=== PATIENT | female | born 1955 | race Two or more races ===

== ENCOUNTER 2016-07-14 03:15 | Emergency (ER) | payer SELFPAY ==
[~2016-07-14] VITALS: Ht 167.6 cm; Wt 63.5 kg
--- NOTE | 2016-07-14 03:25 | NUR ---
PT BIBA #102 PT GIVEN 2 SPRAYS OF NITRO AND 162MG OF ASPIRN.PT A/OX4 BREATHING EFFORTLESSLY ON ROOM AIR, PT STATES SHE STARTED HAVING CHEST PAIN X 1 HOUR AGO WHILE IN HER LONG TERM CELL. IV PLACED PRIOR TO ARRIVAL. PT IN GOWN, ON MONITOR, EKG DONE, LAB CALLED TO DRAW, [employer] AT BEDSIDE, MD MADE AWARE WILL CONTINUE TO MONITOR.
[2016-07-14 03:43] LABS: BASOPHILS % (AUTO) 0.6 % (0.0-2.0); EOSINOPHILS # (AUTO) 0.3 /CMM (0.0-0.7); HEMATOCRIT 37 % (33-45); HEMOGLOBIN 11.6 g/dL (11.5-14.8); LYMPHOCYTES # (AUTO) 2.3 /CMM (0.8-4.8); MEAN CORPUSCULAR HEMOGLOBIN 25 PG (26.0-33.0); MEAN CORPUSCULAR HGB CONC 32 g/dl (31.0-36.0); MEAN CORPUSCULAR VOLUME 79 fL (82-100); MONOCYTES # (AUTO) 0.6 /CMM (0.1-1.30); NEUTROPHILS # (AUTO) 5.2 /CMM (1.8-8.9); NEUTROPHILS % (AUTO) 62.4 % (43.0-81.0); PLATELET COUNT (AUTO) 403 /CMM (150-450); RDW COEFFICIENT OF VARIATION 19.6 (11.5-15.0); RED BLOOD CELL COUNT(AUTO) 4.67 MIL/uL (4.0-5.2); WHITE BLOOD COUNT (AUTO) 8.4 K/uL (4.3-11.0)
[2016-07-14 03:53] LABS: CARBON DIOXIDE 25 mmol/L (21-32); CHLORIDE 108 mmol/L (98-107); GFR 56 mL/min (>60); GLUCOSE 119 mg/dL (74-106); POTASSIUM 3.3 mmol/L (3.5-5.1); SODIUM SERUM 144 mmol/L (136-145); UREA NITROGEN, BLOOD 19 mg/dL (7-18)
[2016-07-14 04:01] LABS: TROPONIN I < 0.017 ng/mL (0.00-0.056)
[2016-07-14] MEDS ORDERED: POTASSIUM CHLORIDE 20 MEQ TAB.PRT.SR PO ONE ×2 (05:00)
--- NOTE | 2016-07-14 05:07 | NUR ---
PT IN BED RELAXING IN NO APPARENT DISTRESS MD MADE AWARE WILL CONTINUE TO MONITOR.
--- NOTE | 2016-07-14 07:25 | NUR ---
Patient on bed, awake.vss
[2016-07-14 07:40] VITALS: BP 130/80
--- NOTE | 2016-07-14 07:40 | NUR ---
Patient discharged to home in stable condition. Written and verbal after care instructions given. Patient verbalizes understanding of instruction.
== END 2016-07-14 07:43 ==
LOC: ER 03:17
DX: I20.8 Other forms of angina pectoris (principal); I10 Essential (primary) hypertension; I25.2 Old myocardial infarction; I70.0 Atherosclerosis of aorta
CPT/HCPCS: 36415; 71010-TC; 80048-TC; 84484-TC; 85025-TC; A4606; Z7610

== ENCOUNTER 2018-10-25 19:23 | Inpatient (IN) | payer MEDICAID ==
[~2018-10-25] VITALS: Ht 160 cm; Wt 76.7 kg
[~2018-10-25 19:23] MED LIST: ALBU18HF2 IH; CLON0.1T PO; FLUO-120 PO; GABA600T12 PO; LISI-603 PO; METF500T7 PO; PRED20TA PO; RANI300C PO; ZOLP10TA6 PO
--- NOTE | 2018-10-25 19:32 | NUR ---
PT BIBRA39 FROM [facility] C/O GENERALIZED ABD PAIN W/NAUSEA X 2 DAYS. PT AOX4. NAD NOTED. RESP EVEN AND UNLABORED. PT ON MONITOR IN BED 4. WILL CONTINUE TO MONITOR.
--- NOTE | 2018-10-25 19:49 | NUR ---
BLOOD DRAWN AND GIVEN TO LAB
--- NOTE | 2018-10-25 19:52 | NUR ---
TECH AT BEDSIDE FOR EKG
[2018-10-25 19:59] LABS: BASOPHILS # (AUTO) 0.2 /CMM (0.0-0.2); BASOPHILS % (AUTO) 0.7 % (0.0-2.0); HEMOGLOBIN 11.8 g/dL (11.5-14.8); MEAN CORPUSCULAR HGB CONC 33 g/dl (31.0-36.0)
[2018-10-25] MEDS ORDERED: ONDANSETRON HCL/PF 4 MG/2 ML VIAL ONE (19:59)
[2018-10-25] MEDS ORDERED: MORPHINE SULFATE INJ 4 MG/ML DISP.SYRIN ONE (19:59)
[2018-10-25] MEDS ORDERED: ONDANSETRON HCL/PF 4 MG/2 ML VIAL IVP ONE (20:00)
[2018-10-25] MEDS ORDERED: IV NS 0.9% 500 ML BAG IV ONE (20:00)
[2018-10-25] MEDS ORDERED: MORPHINE SULFATE INJ 2 MG/ML DISP.SYRIN IV ONE (20:00)
[2018-10-25 20:03] LABS: HEMATOCRIT 36 % (33-45); LYMPHOCYTES # (AUTO) 2.4 /CMM (0.8-4.8); LYMPHOCYTES % (AUTO) 9.5 % (20.0-44.0); MEAN CORPUSCULAR VOLUME 82 fL (82-100); MONOCYTES # (AUTO) 0.9 /CMM (0.1-1.30); MONOCYTES % (AUTO) 3.6 % (2.0-12.0); NEUTROPHILS # (AUTO) 21.3 /CMM (1.8-8.9); NEUTROPHILS % (AUTO) 86.2 % (43.0-81.0); PLATELET COUNT (AUTO) 498 /CMM (150-450); RED BLOOD CELL COUNT(AUTO) 4.44 MIL/uL (4.0-5.2); WHITE BLOOD COUNT (AUTO) 24.7 K/uL (4.3-11.0)
[2018-10-25 20:07] LABS: CALCIUM, SERUM 9.4 mg/dL (8.5-10.1); CARBON DIOXIDE 25 mmol/L (21-32); CHLORIDE 102 mmol/L (98-107); CREATININE 1.2 mg/dL (0.6-1.3); GLUCOSE 118 mg/dL (74-106); SODIUM SERUM 137 mmol/L (136-145); UREA NITROGEN, BLOOD 17 mg/dL (7-18)
--- NOTE | 2018-10-25 20:09 | NUR ---
URINE COLLECTED AND SENT TO LAB
[2018-10-25 20:13] LABS: ALANINE AMINOTRANSFERASE 13 U/L (12-78); ALBUMIN 3.1 g/dL (3.4-5.0); ALKALINE PHOSPHATASE 108 U/L (46-116); ASPARTATE AMINOTRANSFERASE 14 U/L (15-37); BILIRUBIN,DIRECT 0.1 mg/dL (0.0-0.2); BILIRUBIN,TOTAL 0.6 mg/dL (0.2-1.0); LIPASE 90 U/L (73-393); TOTAL PROTEIN, SERUM 7.3 g/dL (6.4-8.2)
--- NOTE | 2018-10-25 20:13 | NUR ---
RADIOLOGY AT BEDSIDE FOR XRAY
[2018-10-25 20:24] LABS: APPEARANCE,URINE Clear (CLEAR); BILIRUBIN,URINE Negative (NEGATIVE); BLOOD, URINE Negative Ery/uL (NEGATIVE); COLOR,URINE Yellow (YELLOW); KETONES,URINE Negative (NEGATIVE); LEUKOCYTE ESTERASE ,URINE Negative (NEGATIVE); NITRITE, URINE Negative (NEGATIVE); PROTEIN,URINE 100 mg/dl (NEGATIVE); UGLUCOSE Negative (NEGATIVE); UROBILINOGEN,URINE 0.2 EU/dL (0.2)
[2018-10-25 20:30] LABS: PH,URINE >9.0 (5.0-8.0)
[2018-10-25 20:34] LABS: BACTERIA,URINE Few /HPF (None Seen); RBC,URINE 0-2 /HPF (0-2); SQUAMOUS EPITHELIAL CELL,UR Few /HPF (None Seen)
[2018-10-25] MEDS ORDERED: CT SWABBABLE VALVE TRANS SET 1 EA INFUS.SET MC ONE (20:35)
[2018-10-25] MEDS ORDERED: IOHEXOL-300 100 ML VIAL IV ONE (20:35)
[2018-10-25] MEDS ORDERED: IV NS 0.9% 250 ML IV ONE (20:36)
--- NOTE | 2018-10-25 20:43 | NUR ---
PT TAKEN TO RADIOLOGY VIA [facility] FOR CT
--- NOTE | 2018-10-25 21:00 | NUR ---
PT RETRUNED FROM CT. PT TOLERATED WELL.
--- NOTE | 2018-10-25 21:51 | NUR ---
LACTIC ACID 2.4. MD AWARE.
[2018-10-25] MEDS ORDERED: HYDROMORPHONE 1 MG/1 ML DISP.SYRIN IV ONE (22:00)
[2018-10-25] MEDS ORDERED: MEROPENEM 1 G in IV NS 0.9% 100 ML IV ONE (22:00)
[2018-10-25] MEDS ORDERED: AZITHROMYCIN 500 MG in IV D5W 250 ML IV ONE (22:00)
[2018-10-25] MEDS ORDERED: HYDROMORPHONE 1 MG/1 ML DISP.SYRIN ONE (22:03)
[2018-10-25] MEDS ORDERED: MEROPENEM 1 G VIAL IV ONE (22:03)
[2018-10-25] MEDS ORDERED: AZITHROMYCIN 500 MG VIAL ONE ×2 (22:28→23:43)
--- NOTE | 2018-10-25 22:29 | NUR ---
REPORT GIVEN TO TEJAL HERNANDEZ FOR CHERI
--- NOTE | 2018-10-25 22:29 | NUR ---
ENDORSED AZITHROMYCIN 500 MG TO TEJAL HERNANDEZ FOR ADMINISTRATION
[2018-10-25] MEDS ORDERED: ALBUTEROL FS 2.5 MG/0.5 ML VIAL.NEB NEB PRN (22:30)
[2018-10-25] MEDS ORDERED: MAGNESIUM HYDROXIDE 30 ML UDC PO PRN (22:30)
[2018-10-25] MEDS ORDERED: IV NS 0.9% 1,000 ML IV PRN (22:30)
[2018-10-25] MEDS ORDERED: INSULIN REGULAR, HUMAN 100 UNIT/ML 3 ML VIAL SQ PRN (22:30)
[2018-10-25] MEDS ORDERED: MAG HYDROX/AL HYDROX/SIMETH 30 ML UDC PO PRN (22:30)
[2018-10-25] MEDS ORDERED: Z GUARD REMEDY 2 OZ OINT TP PRN (22:30)
[2018-10-25] MEDS ORDERED: DEXTROSE 50%-WATER 50 ML DISP.SYRIN IV PRN (22:30)
[2018-10-25] MEDS ORDERED: IPRATROPIUM NEB FS 0.5 MG/2.5 ML AMPUL.NEB NEB PRN (22:30)
[2018-10-25] MEDS ORDERED: ONDANSETRON HCL/PF 4 MG/2 ML VIAL IVP PRN (22:30)
[2018-10-25] MEDS ORDERED: IV NS 0.9% 2,000 ML IV PRN (22:30)
--- NOTE | 2018-10-25 23:00 | NUR ---
TELE/RN NOTES RECEIVED NEW ADMITTED PATIENT IS A 63 YO FEMALE WHO WAS BROUGHT FROM ER ON A GURNEY WITH DX OF RIGHT LOBE PNEUMONIA, PATIENT IS ALERT, ORIENTED X3, ABLE TO PARTICIPATE WITH CARE, RESPIRATIONS EVEN AND UNLABORED, SKIN WARM TO TOUCH, RESPIRATIONS EVEN AND UNLABORED, ON TELE SR 96, , NO PAIN REPORTED AND OBSERVED AT THIS TIME. ABLE TO AMBULATE WITH SUPERVISION, ID BAND PLACED, INSTRUCTR ON USE OF CALL LIGHTS, BED LOCKED, CALL LIGHTS WITHIN REACH, MD TUBBS ADMITING DR. HARDIN CHECK, IV ON LEFT AC, WITH ANTIBIOTIC TO BE INFUSED PER MD ORDER. WILL MONITOR. BED LOCKED CALL LIGHTS WITHIN REACH. WILL MONITOR FOR ANY CHANGES, MD WITH ORDERS. ORDERS TO CARRYOUT.
[2018-10-25 23:30] VITALS: BP 120/77
[2018-10-26] VITALS: BP 117/47
[2018-10-26] MEDS: GUAIFENESIN LA 600 MG TABLET.SA PO SCH ×3 (00:13→20:57)
[2018-10-26 00:24] VITALS: BP 120/77
--- NOTE | 2018-10-26 03:20 | NUR ---
TELE/RN NOTES PATIENT RESTING COMFORTABLY IN BED, MD WAS INFORMED ABOUT ECHOCARDIOGRAM RESULT WITH EF OF 60%, BUT WITH RIGHT DIASTOLIC COLLAPSE RESULT AND VENTRICULAR COLLAPSE, HX OF ,I, ON TELE SR 90'S, NO PAIN AND RESPIRATIONS EVEN AND UNLABORED. MADE AWARE MD TUBBS WITH NO NEW ORDER.
[2018-10-26] MEDS ORDERED: MEROPENEM 1 G VIAL IV ONE (03:29)
[2018-10-26 04:00] VITALS: BP_SYST 134; BP_SYST 174; BP_DIAS 87
[2018-10-26] MEDS: ACETAMINOPHEN 325 MG TABLET PO PRN (04:12)
--- NOTE | 2018-10-26 04:36 | NUR ---
TELE/RN NOTES PATIENT REPORTED HEADACHE, WITH NAUSEA AND ABDOMINAL PAIN , TYLENOL 650MG PO GIVEN AND MAALOC FOR ABDOMINAL DISCOMFORT, WILL GOVE AMRITAAN AND MONITOR.
[2018-10-26] MEDS: HYDROCODONE/APAP 5/325MG 1 EACH TABLET PO PRN ×2 (04:44→20:05)
--- NOTE | 2018-10-26 04:44 | NUR ---
TELE/RN NOTES PATIENT PROVIDED OXYGEN AT 2LITER , ON ROOM AIR OXYGEN AT 93%, WITH PAIN MODERATE IN ABDOMEN, PATIENT ON NEEDED MEDICATION NORCO 5-325 MG PO. WILL MONITOR.
[2018-10-26] MEDS ORDERED: MEROPENEM 1 G in IV NS 0.9% 100 ML IV SCH (05:00)
--- NOTE | 2018-10-26 06:01 | NUR ---
TELE/RN NOTES PATIENT REPORTED PAIN OF MINIMAL PAIN IN ABDOMEN, WARM BLANKET PROVIDED AND WARM COMPRESS FOR COMFORT,
[2018-10-26 06:46] LABS: BASOPHILS % (AUTO) 0.3 % (0.0-2.0); EOSINOPHILS % (AUTO) 0.5 % (0.0-6.0); HEMATOCRIT 31 % (33-45); HEMOGLOBIN 9.9 g/dL (11.5-14.8); LYMPHOCYTES # (AUTO) 1.8 /CMM (0.8-4.8); LYMPHOCYTES % (AUTO) 10.5 % (20.0-44.0); MEAN CORPUSCULAR HGB CONC 32 g/dl (31.0-36.0); MEAN CORPUSCULAR VOLUME 82 fL (82-100); MONOCYTES % (AUTO) 5.8 % (2.0-12.0); NEUTROPHILS # (AUTO) 13.8 /CMM (1.8-8.9); NEUTROPHILS % (AUTO) 82.9 % (43.0-81.0); PLATELET COUNT (AUTO) 404 /CMM (150-450); RED BLOOD CELL COUNT(AUTO) 3.71 MIL/uL (4.0-5.2); WHITE BLOOD COUNT (AUTO) 16.7 K/uL (4.3-11.0)
--- NOTE | 2018-10-26 06:54 | NUR ---
TELE/RN CLOSING NOTES PATIENT SLEPT FEW HOURS, ON PAIN MANAGMENT MONITOIRNG, KEPT COMFORTABLE, REPORTED ABDOMINAL PAIN , RELIEF REPORTED AFTER NORCO 5-325 MG PO GIVEN, ON OXYGEN VIA NC, RESPIRATIONS EVEN AND UNLABORED, MONITORED FOR ANY N/V. BED LOCKED, CALL LIGHTS WITHIN REACH, WILL MONITOR.WILL ENDORSE TO AM RN FOR CHERI.IV SITE ON LEFT AC GAUGE 20 PATENT.
[2018-10-26 07:15] LABS: CALCIUM, SERUM 8.9 mg/dL (8.5-10.1); CREATININE 1.1 mg/dL (0.6-1.3); POTASSIUM 3.8 mmol/L (3.5-5.1)
--- NOTE | 2018-10-26 07:22 | NUR ---
STUDENT RECORDS COORDINATOR OPENING NOTES RECEIVED PATIENT AWAKE IN BED IN NO ACUTE SIGNS OF DISTRESS. A/O X3. ABLE TO MAKE NEEDS KNOWN, DENIES PAIN OR ANY DISCOMFORTS AT THIS TIME. ON O2 VIA N/C @ 2LPM, BREATHING EVEN AND UNLABORED. ON TELE-MONITORING WITH CURRENT READING OF SR WITH HR ON THE 80'S, NO C/O CARDIAC DISTRESS VOICED AT THIS TIME. IV ACCESS ON LAC G#20 INTACT AND PATENT. SAFETY MEASURES IN PLACE. BED IN LOW LOCKED POSITION WITH SIDE RAILS UP X2. CALL LIGHT WITHIN REACH. WILL MONITOR.WILL CONTINUE TO MONITOR PT ACCORDINGLY.
[2018-10-26] MEDS ORDERED: BLOOD SUGAR DIAGNOSTIC 1 EACH STRIP IN SCH (07:30)
[2018-10-26 08:00] VITALS: BP 100/60
[2018-10-26] MEDS ORDERED: GABAPENTIN 300 MG CAPSULE PO ONE (09:00)
[2018-10-26] MEDS ORDERED: DEXTROSE 50%-WATER 50 ML DISP.SYRIN IV PRN (09:00)
[2018-10-26] MEDS ORDERED: *INSULIN REGULAR(HUMULIN R)HUM 100 UNIT/ML VIAL SQ PRN (09:00)
[2018-10-26] MEDS: LISINOPRIL (20MG) 20 MG TABLET PO SCH ×2 (09:00→17:22)
--- NOTE | 2018-10-26 09:08 | NUR ---
RN NOTES WENT ROUND WITH DR TENORIO AND SHE SAID "OK: TO CHECK BLOOD GLUCOSE ACHS AND GIVE METFORMIN. WILL CONTINUE TO MONITOR.
[2018-10-26] MEDS: ENOXAPARIN SODIUM 40 MG/0.4 ML DISP.SYRIN SQ SCH (09:12)
[2018-10-26] MEDS: FLUOXETINE HCL 20 MG CAPSULE PO SCH (09:13)
[2018-10-26] MEDS ORDERED: QUET400T PO (11:27)
[2018-10-26] MEDS ORDERED: ESCI10TA PO (11:27)
[2018-10-26] MEDS: IV NS 0.9% 1,000 ML IV PRN ×2 (11:31→16:27)
[2018-10-26] MEDS: BLOOD SUGAR DIAGNOSTIC 1 EACH STRIP VI SCH ×3 (12:13→22:59)
[2018-10-26] MEDS ORDERED: MEROPENEM 500 MG in IV NS 0.9% 100 ML IV SCH (13:00)
[2018-10-26] MEDS: MEROPENEM 1 G in IV NS 0.9% 100 ML IV SCH ×2 (13:21→20:57)
[2018-10-26 15:54] VITALS: BP 117/74
--- NOTE | 2018-10-26 16:37 | NUR ---
RN NOTED OFFERED PATIENT TO PUT ON SCD BUT PATIENT REFUSED Addendum: 10/26/18 at 1640 by ERICA REYES RN EXPLAINED RISKS AND BENEFITS OF USING SCD BUT PATIENT STILL REFUSED.
[2018-10-26] MEDS: METFORMIN XR 500 MG TAB.SR.24H PO SCH (17:24)
[2018-10-26] MEDS: INSULIN REGULAR, HUMAN 100 UNIT/ML 3 ML VIAL SQ PRN (17:24)
--- NOTE | 2018-10-26 17:26 | NUR ---
RN NOTED PATIENT BS IS 151 MG/DL. PATIENT REFUSED INSULIN COVERAGE AND METFORMIN DESPITE EXPLAINING RISKS AND BENEFITS. PATIENT NOTED WITH NO S/S OF HYPERGLYCEMIA/HYPOGLYCEMIA.
--- NOTE | 2018-10-26 18:40 | NUR ---
RN carminasurmeri notes Received Pt from morning nurse. Pt is awake and alert X4. Pt is sitting in bed comfortably. Respiration is normal and O2 sat is 96% in room air. Pt is refused to have NC on. No SOB. No nausea or vomiting. Pt denies any pain or discomfort at this time. IV sites on LAC #20 is intact, patent and infusing well NS @ 75ml/hr. Instructed to call. Safety precautions is maintained. Bed at low position, brakes on, side rails upX2 and call light is within reach. Will continue to monitor and assists needs.
--- NOTE | 2018-10-26 18:48 | NUR ---
MS RN CLOSING NOTES PATIENT AWAKE AND RESTING IN BED AT MODERATE HIGH BACKREST POSITION. A/O X3. ABLE TO MAKE NEEDS KNOWN. ON ROOM AIR AT THIS TIME, TOLERATING WELL WITH NO SOB NOTED. IV ACCESS ON LAC G#20 INTACT AND PATENT, IVF OF NS @ 75 ML/HR INFUSING WELL, NO S/S OF INFILTRATIONS NOTED. ALL NEEDS AND CARE ATTENDED WELL. SAFETY MEASURES KEPT IN PLACE. BED IN LOW LOCKED POSITION WITH SIDE RAILS UP X2. BEDSIDE TABLE AND CALL LIGHT WITHIN EASY REACH OF PT. WILL MONITOR. WILL ENDORSE TO SALES CLERK FOOD NURSE FOR CHERI.
[2018-10-26 20:00] VITALS: BP 119/92
--- NOTE | 2018-10-26 20:06 | NUR ---
RN medsurg notes Administered [place] 5/325 mg/1tab/ PO as ordered for abdominal pain 7/10 on pain scale per Pt request. Will continue to monitor.
--- NOTE | 2018-10-26 22:00 | NUR ---
Rn medsurg notes Pt is laying in bed comfortably watching TV. No S/S of distress noted. Pt denies any pain at this time. Will continue to monitor.
[2018-10-26] MEDS: AZITHROMYCIN 500 MG in IV D5W 250 ML IV SCH (22:19)
[2018-10-26] MEDS: FAMOTIDINE (20 MG) 20 MG TABLET PO SCH (22:32)
[2018-10-26] MEDS: QUETIAPINE FUMARATE 100 MG TABLET PO SCH (22:32)
[2018-10-26] MEDS: ZOLPIDEM TARTRATE 5 MG TABLET PO PRN (22:54)
[2018-10-27] MEDS: MEROPENEM 1 G in IV NS 0.9% 100 ML IV SCH ×3 (04:39→20:53)
[2018-10-27] MEDS: BLOOD SUGAR DIAGNOSTIC 1 EACH STRIP VI SCH ×4 (06:16→22:32)
[2018-10-27] MEDS: ACETAMINOPHEN 325 MG TABLET PO PRN (06:28)
--- NOTE | 2018-10-27 06:40 | NUR ---
RN medsurg closing notes Pt is alert and oriented X4. Pt is resting in bed comfortably. Awaken easily. Respiration is normal. NO SOB. On room air. No nausea or vomiting. Pt denies pain at this time. IV sites on LAC # 20 is intact and infuising well. Routine meds given and all needs met. VS is stable. Afebrile. Safety precautions is maintained. Bed at low position and call light is within reach. Will endorse to morning nurse for CHERI.
--- NOTE | 2018-10-27 07:19 | NUR ---
MS RN OPENING NOTES RECEIVED PATIENT AWAKE IN BED IN NO ACUTE SIGNS OF DISTRESS. A/O X3. ABLE TO MAKE NEEDS KNOWN, DENIES PAIN OR ANY DISCOMFORTS AT THIS TIME. BREATHING EVEN AND UNLABORED. IV ACCESS ON LAC G#20 INTACT AND PATENT. SAFETY MEASURES IN PLACE. BED IN LOW LOCKED POSITION WITH SIDE RAILS UP X2. CALL LIGHT WITHIN REACH. WILL CONTINUE TO MONITOR PT ACCORDINGLY.
[2018-10-27 08:00] VITALS: BP 81/45
[2018-10-27] MEDS: ESCITALOPRAM OXALATE (10 MG) 10 MG TABLET PO SCH (08:26)
[2018-10-27] MEDS: GUAIFENESIN LA 600 MG TABLET.SA PO SCH ×2 (08:26→21:17)
[2018-10-27] MEDS: LISINOPRIL (20MG) 20 MG TABLET PO SCH ×2 (08:26→16:39)
[2018-10-27] MEDS: FLUOXETINE HCL 20 MG CAPSULE PO SCH (08:26)
[2018-10-27] MEDS: ENOXAPARIN SODIUM 40 MG/0.4 ML DISP.SYRIN SQ SCH (09:23)
[2018-10-27 11:31] LABS: BASOPHILS % (AUTO) 0.4 % (0.0-2.0); EOSINOPHILS % (AUTO) 2.8 % (0.0-6.0); HEMATOCRIT 32 % (33-45); HEMOGLOBIN 10.4 g/dL (11.5-14.8); LYMPHOCYTES # (AUTO) 1.8 /CMM (0.8-4.8); LYMPHOCYTES % (AUTO) 19.7 % (20.0-44.0); MEAN CORPUSCULAR HGB CONC 32 g/dl (31.0-36.0); MEAN CORPUSCULAR VOLUME 83 fL (82-100); MONOCYTES # (AUTO) 0.6 /CMM (0.1-1.30); MONOCYTES % (AUTO) 6.8 % (2.0-12.0); NEUTROPHILS # (AUTO) 6.5 /CMM (1.8-8.9); NEUTROPHILS % (AUTO) 70.3 % (43.0-81.0); PLATELET COUNT (AUTO) 413 /CMM (150-450); RED BLOOD CELL COUNT(AUTO) 3.85 MIL/uL (4.0-5.2); WHITE BLOOD COUNT (AUTO) 9.2 K/uL (4.3-11.0)
[2018-10-27 11:43] LABS: CALCIUM, SERUM 9.1 mg/dL (8.5-10.1); CREATININE 1.2 mg/dL (0.6-1.3)
--- NOTE | 2018-10-27 12:03 | NUR ---
RN NOTES UNABLE TO COLLECT SPUTUM SPECIMEN FOR CULTURE AT THIS TIME DUE TO PATIENT HAS NON-PRODUCTIVE COUGH. REMINDED PATIENT SOON SHE COUGH UP SPUTUM TO CALL STAFF. WILL CONTINUE TO MONITOR.
[2018-10-27 16:00] VITALS: BP 99/72
[2018-10-27] MEDS: LACTOBACILLUS RHAMNOSUS GG 1 EACH CAP.SPRINK PO SCH (16:35)
[2018-10-27] MEDS: METFORMIN XR 500 MG TAB.SR.24H PO SCH (17:31)
--- NOTE | 2018-10-27 18:14 | NUR ---
RN MS CLOSING NOTES Pt is alert and oriented X4. Pt is resting in bed comfortably at this time. Respiration is normal. NO SOB. On room air. Pt denies pain at this time. IV sites on LAC # 20 with NS infusing @75 ML/HR. VS is stable. Safety precautions is maintained. HOB elevated at 40 degrees at all time. Bed at low position and call light is within reach. Will endorse to social media marketing manager for CHERI.
--- NOTE | 2018-10-27 19:00 | NUR ---
MS RISK AND INSURANCE MANAGER INITIAL NOTES RECEIVED REPORT AT THE BEDSIDE WITH AM NURSE PRO . PT IS SITTING POSITION WITH IVF OF NS AT 75ML.HR INFUSING ON HER LEFT AC PATENT AND INATC. SHE'S ALERT ORIENTED X4 ABLE TO AMBULATE BY HERSELF. NO SOB NOTED AND DENIES ANY PAIN OR ANY DISCOMFORT. DENIES ANY N/V AND ABDOMINAL PAIN AT THIS TIME. KEPT HER WARM AND COMFORTABLE AT ALL TIMES. ENCOURAGE PT TO USE THE CALL LIGHT SYSTEM IF SHE NEEDS SOME HELPED OR ASSISTANCE. PLACE CALL LIGHT AT REACH. WILL CONTINUE MONITORING.
[2018-10-27 20:00] VITALS: BP 148/99
--- NOTE | 2018-10-27 20:59 | NUR ---
IV Antibiotic IV Meropenem given to Left AC peripheral line, education on possible side effect explained to patient, verbalized understanding.
[2018-10-27] MEDS: QUETIAPINE FUMARATE 100 MG TABLET PO SCH (21:17)
[2018-10-27] MEDS: FAMOTIDINE (20 MG) 20 MG TABLET PO SCH (21:17)
[2018-10-27] MEDS: ZOLPIDEM TARTRATE 5 MG TABLET PO PRN (22:32)
--- NOTE | 2018-10-27 22:35 | NUR ---
ms dough scaler and mixer notes blood sugar checked done 124, no insulin due at this time, no signs of hypo glycemia noted. Ambien po given per pt requested. educate pt for possible side effect and pt aware of it. Merrem IVP bag still infusing. kept her warm and comfortable at all times. place call light at reach.
[2018-10-27 22:52] VITALS: BP 148/99
[2018-10-28] MEDS: AZITHROMYCIN 500 MG in IV D5W 250 ML IV SCH ×2 (00:05→21:53)
--- NOTE | 2018-10-28 01:05 | NUR ---
IV Antibiotic IV Azithromycin given to Left AC peripheral line, education on possible side effect explained to patient, verbalized understanding.
--- NOTE | 2018-10-28 01:36 | NUR ---
ms karrie notes pt resting comfortably in bed without any distress noted. kept her warm and comfortable at all times. place call light at reach. will continue monitoring.
[2018-10-28] MEDS: MEROPENEM 1 G in IV NS 0.9% 100 ML IV SCH ×3 (04:13→20:58)
--- NOTE | 2018-10-28 04:18 | NUR ---
IV Antibiotic IV Meropenem given to Left AC peripheral line, education on possible side effect explained to patient, verbalized understanding.
[2018-10-28] MEDS: BLOOD SUGAR DIAGNOSTIC 1 EACH STRIP VI SCH ×4 (05:59→21:53)
[2018-10-28] MEDS: INSULIN REGULAR, HUMAN 100 UNIT/ML 3 ML VIAL SQ PRN (06:06)
--- NOTE | 2018-10-28 06:11 | NUR ---
ms hospice case manager notes pt remain resting with eyes closed but arouse to touch and to her name, blood sugar checked done 84, no insulin coverages at this time. no signs of hypo glycemia noted. IVF still infusing. kept her warm and comfortable at all times. place call light at reach. will continue to monitor.
[2018-10-28 06:48] LABS: BASOPHILS % (AUTO) 0.7 % (0.0-2.0); EOSINOPHILS % (AUTO) 3.7 % (0.0-6.0); HEMATOCRIT 30 % (33-45); HEMOGLOBIN 9.8 g/dL (11.5-14.8); LYMPHOCYTES # (AUTO) 1.4 /CMM (0.8-4.8); LYMPHOCYTES % (AUTO) 25.8 % (20.0-44.0); MEAN CORPUSCULAR HGB CONC 33 g/dl (31.0-36.0); MEAN CORPUSCULAR VOLUME 82 fL (82-100); MONOCYTES # (AUTO) 0.5 /CMM (0.1-1.30); MONOCYTES % (AUTO) 9.9 % (2.0-12.0); NEUTROPHILS # (AUTO) 3.2 /CMM (1.8-8.9); NEUTROPHILS % (AUTO) 59.9 % (43.0-81.0); PLATELET COUNT (AUTO) 399 /CMM (150-450); RED BLOOD CELL COUNT(AUTO) 3.65 MIL/uL (4.0-5.2); WHITE BLOOD COUNT (AUTO) 5.3 K/uL (4.3-11.0)
[2018-10-28 07:01] LABS: CREATININE 0.8 mg/dL (0.6-1.3); PHOSPHORUS 3.7 mg/dL (2.5-4.9); POTASSIUM 3.7 mmol/L (3.5-5.1)
--- NOTE | 2018-10-28 07:25 | NUR ---
MS HEAD OF ENGLISH CLOSING NOTES PT REMAIN ASLEEP BUT NO SIGNS OF DISTRESS NOTED. STABLE SHELLY THE NIGHT. IVF STILL INFUSING ON HER LEFT AC. PATENT AND INTACT. ALL DUE MEDS GIVEN AND ALL NEEDS MET. KEPT HER WARM AND COMFORTABLE AT ALL TIMES. PLACE CALL LIGHT AT REACH. ENDORSE TO AM NURSE JAY FOR CONTINUITY OF CARE.
--- NOTE | 2018-10-28 07:30 | NUR ---
RN NOTES RECEIVED PATIENT IN BED, A/A/O X4, ABLE TO MAKE NEEDS KNOWN AND RESPOND APPROPRIATELY. NO APPARENT DISTRESS AT THIS TIME. ON ROOM AIR BREATHING UNLABORED. NO COMPLAINTS OF PAIN OF ANY KIND AT THIS TIME. IV LINE ON THE L HAND G #[address] AND INTACT, PATENT ON FLUSHING. DRESSING C/D/I. WITH ONGOING IVF OF NS AT 75CC/HR. PATIENT ENCOURAGE TO CALL FOR HELP/ ASSISTANCE IF NEEDED. SAFETY MEASURES OBSERVED AND MAINTAINED. BED LOW AND LOCKED POSITION. CALL LIGHT PLACED WITHIN RANGE. WILL CONTINUE TO MONITOR AND ANTICIPATE NEEDS
[2018-10-28 08:00] VITALS: BP_SYST 118; BP_SYST 129; BP_DIAS 56; BP_DIAS 82
[2018-10-28] MEDS: LACTOBACILLUS RHAMNOSUS GG 1 EACH CAP.SPRINK PO SCH ×2 (09:27→17:23)
[2018-10-28] MEDS: FLUOXETINE HCL 20 MG CAPSULE PO SCH (09:28)
[2018-10-28] MEDS: GUAIFENESIN LA 600 MG TABLET.SA PO SCH ×2 (09:28→20:58)
[2018-10-28] MEDS: ESCITALOPRAM OXALATE (10 MG) 10 MG TABLET PO SCH (09:28)
[2018-10-28] MEDS: LISINOPRIL (20MG) 20 MG TABLET PO SCH ×2 (09:28→17:25)
[2018-10-28] MEDS: ENOXAPARIN SODIUM 40 MG/0.4 ML DISP.SYRIN SQ SCH (09:29)
--- NOTE | 2018-10-28 10:52 | NUR ---
RN NOTES SEEN AND EXAMINED BY Johanna LORA NP. ALSO INFORMED LATER THAT IV HAS BEEN OFF FOR A WHILE NOW. HOSPITALIST OKAY WITH IT
[2018-10-28 16:00] VITALS: BP_SYST 121; BP_SYST 124; BP_DIAS 79
[2018-10-28] MEDS: METFORMIN XR 500 MG TAB.SR.24H PO SCH ×2 (17:23→18:00)
--- NOTE | 2018-10-28 18:00 | NUR ---
RN NOTES PATIENT REFUSE TO TAKE METFORMIN 1000MG PO
--- NOTE | 2018-10-28 18:49 | NUR ---
RN NOTES ENDORSED PATIENT FOR CONTINUITY OF CARE. NOT ON ANY FORM OF DISTRESS. NO ACUTE CHANGES WITHIN THE SHIFT. ALL NURSING NEEDS ATTENDED AND MET. SAFETY MEASURES IN PLACE AT ALL TIME. CALL LIGHT WITHIN REACH
--- NOTE | 2018-10-28 19:25 | NUR ---
RN PM OPENING NOTES BEDSIDE REPORT RECIEVED FROM JAY RN. PATIENT IS NOT IN ANY DISTRESS. REVIEWED POC. QUESTIONS CONCERNS ADDRESSED. SAFETY MEASURES IN PLACE AT ALL TIME. CALL LIGHT WITHIN REACH. VERBALIZED UNDERSTNADING TO CALL FOR ASSISTANCE NEEDED.
[2018-10-28 20:00] VITALS: BP 142/98
--- NOTE | 2018-10-28 20:55 | NUR ---
rn notes meropenem dose form 10/26/18 miss dosed since it is long past due.
[2018-10-28] MEDS: FAMOTIDINE (20 MG) 20 MG TABLET PO SCH (21:07)
[2018-10-28] MEDS: ZOLPIDEM TARTRATE 5 MG TABLET PO PRN (21:07)
[2018-10-28] MEDS: QUETIAPINE FUMARATE 100 MG TABLET PO SCH (21:07)
--- NOTE | 2018-10-28 22:07 | NUR ---
INSOMNIA AMBIEN REASSESSMENT PATIENT STATES SHE IS STARTING TO FEEL SLEEPY BUT SHE IS ENJOYING WATCHING [place] ON TV AND WANTS TO CONT WATCHING. PATIENT ENCORAGED TO TURN OFF TV AND GET SOME SLEEP. STATES "i WILL ONCE THIS SHOW FINISHES.
--- NOTE | 2018-10-28 23:23 | NUR ---
iv changed. patient complianing of pain in her left ac where iv is with azithromycin running. iv appears mildly red above the site. iv removed and new iv inserted to right wrist 20 gauge. patient tolerated procedure well. iv continued to infuse to right wrist.
[2018-10-29 01:16] VITALS: BP 143/98
[2018-10-29] MEDS: MEROPENEM 1 G in IV NS 0.9% 100 ML IV SCH ×2 (05:09→12:28)
--- NOTE | 2018-10-29 06:30 | NUR ---
RN CLOSING NOTE PATIENT IN BED RESTING COMFORTABLY IN NO APPARENT DISTRESS SEEN WITH EYES CLOSED. BREATHS EVEN AND UNLABORED. CALL LIGHT IN REACH. BED DOWN AND LOCKED
[2018-10-29 07:02] LABS: BASOPHILS % (AUTO) 0.8 % (0.0-2.0); EOSINOPHILS % (AUTO) 4.9 % (0.0-6.0); HEMATOCRIT 30 % (33-45); HEMOGLOBIN 9.8 g/dL (11.5-14.8); LYMPHOCYTES # (AUTO) 1.3 /CMM (0.8-4.8); LYMPHOCYTES % (AUTO) 26.5 % (20.0-44.0); MEAN CORPUSCULAR HGB CONC 33 g/dl (31.0-36.0); MEAN CORPUSCULAR VOLUME 82 fL (82-100); MONOCYTES # (AUTO) 0.6 /CMM (0.1-1.30); NEUTROPHILS # (AUTO) 2.7 /CMM (1.8-8.9); NEUTROPHILS % (AUTO) 55.8 % (43.0-81.0); PLATELET COUNT (AUTO) 398 /CMM (150-450); RED BLOOD CELL COUNT(AUTO) 3.65 MIL/uL (4.0-5.2); WHITE BLOOD COUNT (AUTO) 4.8 K/uL (4.3-11.0)
[2018-10-29 07:17] LABS: CALCIUM, SERUM 9.2 mg/dL (8.5-10.1); CREATININE 0.9 mg/dL (0.6-1.3); MAGNESIUM 1.9 mg/dL (1.8-2.4); PHOSPHORUS 3.2 mg/dL (2.5-4.9); POTASSIUM 3.7 mmol/L (3.5-5.1)
[2018-10-29] MEDS: BLOOD SUGAR DIAGNOSTIC 1 EACH STRIP VI SCH ×2 (07:46→12:22)
[2018-10-29 08:00] VITALS: BP 118/85
--- NOTE | 2018-10-29 08:00 | NUR ---
MS RN NOTES PATIENT IN BED RESTING NO SOB OR ACUTE DISTRESS NOTED. PATIENT ALERT, ORIENTED X3 . PERIPHERAL IV INTACT PATENT. PATIENT ALERT, ORIENTED X3. BED IN LOW LOCKED POSITION. CALL LIGHT WITHIN REACH. WILL CONTINUE TO MONITOR.
[2018-10-29 08:32] VITALS: BP 118/85
[2018-10-29] MEDS: ESCITALOPRAM OXALATE (10 MG) 10 MG TABLET PO SCH (08:32)
[2018-10-29] MEDS: GUAIFENESIN LA 600 MG TABLET.SA PO SCH (08:32)
[2018-10-29] MEDS: LACTOBACILLUS RHAMNOSUS GG 1 EACH CAP.SPRINK PO SCH (08:32)
[2018-10-29] MEDS: LISINOPRIL (20MG) 20 MG TABLET PO SCH (08:32)
[2018-10-29] MEDS: FLUOXETINE HCL 20 MG CAPSULE PO SCH (08:32)
[2018-10-29] MEDS: ENOXAPARIN SODIUM 40 MG/0.4 ML DISP.SYRIN SQ SCH (08:33)
[2018-10-29] MEDS ORDERED: AZIT250T13 PO (12:16)
--- NOTE | 2018-10-29 16:00 | NUR ---
MS TEJAL NOTES PATIENT DISCHARGED TO [facility]. PATIENT ALERT, ORIENTED X4. DENIES ANY PAIN OR DISCOMFORT. DISCHARGE PROTOCOL FOLLOWED. ALL BELONGINGS ACCOUNTED FOR, BELONGING LIST SIGNED. DISCHARGE INSTRUCTIONS PROVIDED VERBALIZED UNDERSTANDING. PRESCRIPTION PROVIDED TO PATIENT. PERIPHERAL IV REMOVED. ID BAND REMOVED. PATIENT ESCORTED TO CAR. Addendum: 10/29/18 at 1711 by MACY PEREZ RN PATIENT REQUESTED LYFT TRANSFORATION FOR DISCHARGE TRANSFORATION.
[2018-10-29] MEDS ORDERED: METFORMIN XR 500 MG TAB.SR.24H PO SCH (18:00)
[2018-10-29] MEDS ORDERED: AZITHROMYCIN 250 MG TABLET PO SCH (22:00)
== END 2018-10-29 16:00 | disposition home or self-care (01) | DRG 720 ==
LOC: ER 19:24 → TELE 22:16 → MED 10-26 08:43
PROVIDERS: ADMIT Nurse Practitioner Acute Care; ATTEND Registered Nurse
DX: A41.9 Sepsis, unspecified organism (principal); D68.59 Other primary thrombophilia; I11.0 Hypertensive heart disease with heart failure; J18.0 Bronchopneumonia, unspecified organism; E44.1 Mild protein-calorie malnutrition; E66.01 Morbid (severe) obesity due to excess calories; I50.32 Chronic diastolic (congestive) heart failure; E11.9 Type 2 diabetes mellitus without complications; D64.9 Anemia, unspecified; J21.9 Acute bronchiolitis, unspecified; I25.2 Old myocardial infarction; F41.9 Anxiety disorder, unspecified; F32.9 Major depressive disorder, single episode, unspecified; Z88.0 Allergy status to penicillin; Z79.51 Long term (current) use of inhaled steroids; Z79.899 Other long term (current) drug therapy; Z68.29 Body mass index [BMI] 29.0-29.9, adult; Z79.84 Long term (current) use of oral hypoglycemic drugs; K21.9 Gastro-esophageal reflux disease without esophagitis; Z87.01 Personal history of pneumonia (recurrent); Z90.710 Acquired absence of both cervix and uterus; Z90.49 Acquired absence of other specified parts of digestive tract; R91.8 Other nonspecific abnormal finding of lung field; K44.9 Diaphragmatic hernia without obstruction or gangrene; K57.30 Diverticulosis of large intestine without perforation or abscess without bleeding; F20.9 Schizophrenia, unspecified
CPT/HCPCS: 36415; 71045-TC; 71250-TC; 80048-TC; 80061-TC; 80076-TC; 81000-TC; 82962-TC; 83605-TC; 83690-TC; 83735-TC; 84100-TC; 84484-TC; 85025-TC; 85730-TC; 87040-TC; 87081-TC; 93307-TC; G0378; J0456; J1170; J1650; J1815; J2185; J2270; J2405; J7030; J7040; J7050; J7060; Q9967

== ENCOUNTER 2019-04-20 11:41 | Emergency (ER) | payer MEDICAID ==
[~2019-04-20] VITALS: Ht 162.6 cm; Wt 72.1 kg
[~2019-04-20 11:41] MED LIST changes: +AZIT250T13 PO; +ESCI10TA PO; -FLUO-120 PO; +FLUO20CA40 PO; +METF500T20 PO; -METF500T7 PO; +QUET400T PO; -ZOLP10TA6 PO
--- NOTE | 2019-04-20 11:45 | NUR ---
PRUDENCIO 889 FROM HOME, C/O NAUSEA, VOMITING x 1 DAY. TO ER BED 10, HOOKED TO MONITOR, CHANGED TO HOSP GOWN, PROVIDED W WARM BLANKET, AWAITING MD CLARKE.
--- NOTE | 2019-04-20 11:45 | NUR ---
DR GONSALEZ AT BEDSIDE
[2019-04-20] MEDS ORDERED: IV NS 0.9% 1,000 ML BAG IV ONE (12:00)
[2019-04-20] MEDS ORDERED: FAMOTIDINE/PF INJ 20 MG/2 ML VIAL IV ONE ×2 (12:00→12:14)
[2019-04-20] MEDS ORDERED: ONDANSETRON HCL/PF 4 MG/2 ML VIAL IVP ONE (12:00)
[2019-04-20 12:09] LABS: BASOPHILS # (AUTO) 0.1 /CMM (0.0-0.2); MEAN CORPUSCULAR VOLUME 82 fL (82-100); MONOCYTES # (AUTO) 0.3 /CMM (0.1-1.30)
[2019-04-20 12:11] LABS: BASOPHILS % (AUTO) 0.8 % (0.0-2.0); EOSINOPHILS % (AUTO) 2.7 % (0.0-6.0); HEMATOCRIT 32 % (33-45); LYMPHOCYTES % (AUTO) 15.4 % (20.0-44.0); MEAN CORPUSCULAR HGB CONC 31 g/dl (31.0-36.0); MONOCYTES % (AUTO) 4.9 % (2.0-12.0); NEUTROPHILS # (AUTO) 4.8 /CMM (1.8-8.9); NEUTROPHILS % (AUTO) 76.2 % (43.0-81.0); PLATELET COUNT (AUTO) 510 /CMM (150-450); RED BLOOD CELL COUNT(AUTO) 3.87 MIL/uL (4.0-5.2); WHITE BLOOD COUNT (AUTO) 6.3 K/uL (4.3-11.0)
[2019-04-20] MEDS ORDERED: ONDANSETRON HCL/PF 4 MG/2 ML VIAL ONE (12:14)
[2019-04-20 12:18] LABS: CALCIUM, SERUM 9.5 mg/dL (8.5-10.1); CARBON DIOXIDE 26 mmol/L (21-32); CHLORIDE 105 mmol/L (98-107); CREATININE 0.8 mg/dL (0.6-1.3); GLUCOSE 108 mg/dL (74-106); POTASSIUM 4.1 mmol/L (3.5-5.1); SODIUM SERUM 142 mmol/L (136-145); UREA NITROGEN, BLOOD 11 mg/dL (7-18)
[2019-04-20 12:23] LABS: ALANINE AMINOTRANSFERASE 19 U/L (12-78); ALBUMIN 3.3 g/dL (3.4-5.0); ALKALINE PHOSPHATASE 146 U/L (46-116); ASPARTATE AMINOTRANSFERASE 21 U/L (15-37); BILIRUBIN,DIRECT 0.1 mg/dL (0.0-0.2); BILIRUBIN,TOTAL 0.4 mg/dL (0.2-1.0); LIPASE 86 U/L (73-393); TOTAL PROTEIN, SERUM 7.5 g/dL (6.4-8.2)
[2019-04-20] MEDS ORDERED: IOHEXOL-300 100 ML VIAL IV ONE (13:56)
[2019-04-20] MEDS ORDERED: IV NS 0.9% 250 ML IV ONE (13:57)
[2019-04-20] MEDS ORDERED: CT SWABBABLE VALVE TRANS SET 1 EA INFUS.SET MC ONE (13:57)
--- NOTE | 2019-04-20 14:00 | NUR ---
WHEELED OUT VIA RNEY FOR CT SCAN
--- NOTE | 2019-04-20 15:35 | NUR ---
PATIENT IN BED AWAKE, HOOKED TO MONITOR, WILL CONTINUE TO MONITOR ACCORDINGLY.
[2019-04-20] MEDS ORDERED: ACETAMINOPHEN 325 MG TABLET PO ONE (16:00)
--- NOTE | 2019-04-20 16:40 | NUR ---
IV removed. Catheter intact and site benign. Pressure and 4x4 applied to site. No bleeding noted. Patient discharged, assisted to waiting room in stable condition. Admitting will set cab for patient. Written and verbal after care instructions given. Patient verbalizes understanding of instruction.
--- NOTE | 2019-04-20 16:46 | NUR ---
Patient discharged to home in stable condition. Written and verbal after care instructions given. Patient verbalizes understanding of instruction.
[2019-04-20 16:48] VITALS: BP 158/91
== END 2019-04-20 16:48 | disposition home or self-care (01) ==
LOC: ER 11:43
DX: R10.84 Generalized abdominal pain (principal); R11.2 Nausea with vomiting, unspecified; I10 Essential (primary) hypertension; Z88.0 Allergy status to penicillin; Z79.899 Other long term (current) drug therapy; Z79.84 Long term (current) use of oral hypoglycemic drugs
CPT/HCPCS: 36415; 74176; 80048; 80076; 83690; 84484; 85025; 96361; 96374; 96375; 99284; J2405; J3490; J7030; J7050; Q9967